=== PATIENT | male | born 2000 | race African-American/Black ===

== ENCOUNTER 2024-05-30 05:39 | Emergency (ER) | payer OTHER ==
[~2024-05-30] VITALS: Ht 188 cm; Wt 84.0 kg
[2024-05-30 05:54] VITALS: BP 116/70; TEMP 36.9; O2SAT 100
[2024-05-30 05:56] VITALS: PULSE 62; RESP 18; O2SAT 100
[2024-05-30] MEDS ORDERED: IBUP-2029 MT (06:54)
[2024-05-30 07:02] VITALS: TEMP 98.4
[2024-05-30] MEDS: ACETAMINOPHEN 325MG TABLET PO ONE (07:02)
== END 2024-05-30 07:08 | disposition home or self-care (01) ==
LOC: ER 06:24
DX: S09.90XA Unspecified injury of head, initial encounter (principal); W01.198A Fall on same level from slipping, tripping and stumbling with subsequent striking against other object, initial encounter; Y99.0 Civilian activity done for income or pay; Y92.89 Other specified places as the place of occurrence of the external cause
CPT/HCPCS: 99282